=== PATIENT | male | born 1965 | race Two or more races ===

== ENCOUNTER 2018-04-19 09:00 | Emergency (ER) | payer OTHER ==
[~2018-04-19] VITALS: Ht 172.7 cm; Wt 87.5 kg
[2018-04-19 09:04] VITALS: BP 175/106; Ht 172.7 cm; Wt 87.5 kg
== END 2018-04-19 09:48 | disposition home or self-care (01) ==
LOC: ED 09:00
DX: M70.21 Olecranon bursitis, right elbow (principal); Y93.89 Activity, other specified